=== PATIENT | female | born 1965 | race Caucasian/White ===

== ENCOUNTER 2021-09-22 10:24 | Outpatient (REF) | payer OTHER, SELFPAY ==
[2021-09-22 10:49] LABS: MANUAL DIFF FLAG NO
[2021-09-22 11:04] LABS: Basophils Percent Auto 0.3 % (0-2); Eosinophils Absolute Auto 0.1 X10*3/uL (0.0-0.4); Hematocrit 41.2 % (37.0-47.0); Hemoglobin 13.8 g/dl (12.0-16.0); Lymphocytes Absolute Auto 1.3 X10*3/uL (1.2-4.9); Lymphocytes Percent Auto 32.2 % (20-40); Mean Corpuscular HGB Conc 33.5 g/dl (31.0-35.0); Mean Corpuscular Hemoglobin 31.9 pg (27.0-33.0); Mean Corpuscular Volume 95.4 fL (80.0-98.0); Mean Platelet Volume 8.5 fL (9.4-12.3); Monocytes Absolute Auto 0.4 X10*3/uL (0.1-1.2); Monocytes Percent Auto 8.8 % (2-11); Neutrophils Absolute Auto 2.2 x10*3/uL (2.0-8.3); Neutrophils Percent Auto 55.7 % (45-73); Platelet Count 257 X10*3/uL (160-400); Red Blood Count 4.32 X10*6/uL (4.20-5.50); Red Cell Distribution Width 11.9 % (11.0-16.0)
[2021-09-22 11:32] LABS: Cholesterol 183 mg/dL; HDL Cholesterol 69 mg/dL; LDL Cholesterol Calculated 106 mg/dl; Triglycerides 40 mg/dL
[2021-09-22 11:49] LABS: TSH reflex Free T4 1.16 uIU/mL (0.32-4.0)
== END 2021-09-22 10:25 | disposition home or self-care (01) ==
LOC: HO.LAB 10:24
PROVIDERS: PCP Hospitalist; Visit Provider Hospitalist
DX: Z00.00 Encounter for general adult medical examination without abnormal findings (principal)
CPT/HCPCS: 36415; 80061; 84443; 85025

== ENCOUNTER 2021-10-05 12:16 | Outpatient (REF) | payer OTHER, SELFPAY ==
--- NOTE | ~2021-10-05 | XR_ITS ---
EXAMINATION: XR CHEST CLINICAL INFORMATION: Preop COMPARISON: None TECHNIQUE: 2 views of the chest were obtained. FINDINGS: The cardiac and mediastinal contours are normal. The lungs are clear. There is no pleural effusion or pneumothorax. There are mild degenerative changes of the lower thoracic spine and curvature to the left. XR/XR chest 2V IMPRESSION: No evidence for acute disease in the chest.
--- NOTE | 2021-10-05 12:27 | ECG_ITS ---
Test Reason : PREOP Blood Pressure : / mmHG Vent. Rate : 078 BPM Atrial Rate : 078 BPM P-R Int : 158 ms QRS Dur : 078 ms QT Int : 374 ms P-R-T Axes : 061 064 038 degrees QTc Int : 426 ms Normal sinus rhythm Septal infarct , age undetermined Abnormal ECG No previous ECGs available Referred By: Amee Engel Electronically Signed By:SANTO FITZGERALD MD
[2021-10-05 13:38] LABS: Alanine Aminotransferase 126 U/L (0-31); Albumin Level 4.4 g/dL (3.5-5.0); Alkaline Phosphatase 76 U/L (39-117); Anion Gap 11 (12-20); Aspartate Amino Transferase 99 U/L (5-31); Bilirubin Total 0.8 mg/dL (0.0-1.0); Blood Urea Nitrogen 7 mg/dL (9-16); Calcium 9.6 mg/dL (8.4-10.2); Carbon Dioxide 28 mmol/L (22-29); Chloride 101 mmol/L (96-108); Estimated Glomerular Filt Rate > 60; Glucose Fasting 99 mg/dL (60-99); Sodium 136 mmol/L (135-145); Total Protein 7.3 g/dL (6.5-8.0)
[2021-10-05 13:42] LABS: HCG Quantitative 8 mIU/mL
[2021-10-08 22:22] LABS: Mixing Study - PT 11.3 sec (9.0-11.5); PTT LA 36 sec (< OR = 40)
== END 2021-10-05 12:17 | disposition home or self-care (01) ==
LOC: HO.LAB 12:16
PROVIDERS: PCP Hospitalist; Visit Provider Hospitalist
DX: Z01.818 Encounter for other preprocedural examination (principal)
CPT/HCPCS: 36415; 71046; 80053; 84702; 85611; 85732; 93005

== ENCOUNTER 2021-10-16 08:16 | Outpatient (REF) | payer OTHER, SELFPAY ==
[2021-10-16 12:09] LABS: Alanine Aminotransferase 51 U/L (0-31); Albumin Level 4.5 g/dL (3.5-5.0); Alkaline Phosphatase 68 U/L (39-117); Aspartate Amino Transferase 29 U/L (5-31); Bilirubin Direct 0.3 mg/dL (0.0-0.5); Bilirubin Total 0.6 mg/dL (0.0-1.0); Total Protein 7.3 g/dL (6.5-8.0)
== END 2021-10-16 08:17 | disposition home or self-care (01) ==
LOC: HO.WFDLDS 08:16
PROVIDERS: Visit Provider Hospitalist
DX: Z00.00 Encounter for general adult medical examination without abnormal findings (principal)
CPT/HCPCS: 36415; 80076